=== PATIENT | female | born 1985 | race Caucasian/White ===

== ENCOUNTER 2022-03-25 00:32 | Emergency (ER) | payer BC ==
[~2022-03-25] VITALS: Ht 162.6 cm; Wt 74.8 kg
[2022-03-25 00:40] VITALS: BP_SYST 166
--- NOTE | 2022-03-25 00:40 | NUR ---
ER at bedside examining patient.
[2022-03-25] MEDS ORDERED: LISINOPRIL 10 MG TABLET (PRINIVIL) PO ONE (01:00)
[2022-03-25] MEDS: IPRATROPIUM/ALBUTEROL SULFATE 3 ML AMPUL.NEB (DUONEB) INH ONE (01:08)
[2022-03-25 01:25] LABS: MEAN CORPUSCULAR VOLUME 88 fL (79.0-98.0); MONOCYTES # (AUTO) 0.6 K/uL (0.0-1.0)
[2022-03-25 01:31] LABS: BASOPHILS % (AUTO) 0.4 % (0.0-2.0); EOSINOPHILS # (AUTO) 0.1 K/uL (0.0-0.4); EOSINOPHILS % (AUTO) 2.1 % (0.0-4.0); HEMATOCRIT 41.8 % (36-48); HEMOGLOBIN 14.1 g/dL (12.0-16.0); LYMPHOCYTES # (AUTO) 2.6 K/uL (1.0-5.5); LYMPHOCYTES % (AUTO) 48.6 % (20.5-51.5); MEAN CORPUSCULAR HEMOGLOBIN 30 pg (27-31); MEAN CORPUSCULAR HGB CONC 34 % (32-36); MONOCYTES % (AUTO) 10.9 % (1.7-9.3); PLATELET COUNT (AUTO) 148 K/uL (130-430); RED BLOOD CELL COUNT(AUTO) 4.72 MIL/uL (4.2-6.2); RED CELL DISTRIBUTION WIDTH 12.9 % (9.0-15.0); WHITE BLOOD COUNT (AUTO) 5.3 K/uL (4.8-10.8)
[2022-03-25 01:33] LABS: ANION GAP 6 (5-15); CALCIUM 9.3 mg/dL (8.4-11.0); CHLORIDE 103 mmol/L (98-107); CREATININE 1.23 mg/dL (0.55-1.30); GLUCOSE 109 mg/dL (70-99); POTASSIUM 3.8 mmol/L (3.5-5.1); SODIUM SERUM 139 mmol/L (136-145); UREA NITROGEN, BLOOD 19 mg/dL (8-21)
[2022-03-25 01:41] LABS: ALANINE AMINOTRANSFERASE 26 U/L (12-78); ALBUMIN 3.7 g/dL (3.4-4.8); ASPARTATE AMINOTRANSFERASE 23 U/L (10-37); TOTAL BILIRUBIN 0.2 mg/dL (0.0-1.0)
[2022-03-25 01:43] LABS: GFR AFRICAN AMERICAN 64 mL/min (>90)
--- NOTE | 2022-03-25 02:17 | NUR ---
Written consent signed for IV contrast administration. Pt reports she was tested for food allergies in 2017 and a very mild reaction to shellfish was reported. Pt states allergy marker was very low. MD Zarco was made aware and okay to continue with procedure. Will monitor for any reaction.
--- NOTE | 2022-03-25 02:20 | NUR ---
# 20 gauge angiocath placed to R AC. Use of asceptic technique. Opsite placed over site. Blood return noted. Blood for lab drawn from site. Flushed with 10 cc of normal saline. No evidence of infiltration noted. Patient tolerated well.
--- NOTE | 2022-03-25 02:38 | NUR ---
Pt taken to CT for imaging.
[2022-03-25] MEDS ORDERED: iohexoL 300 mgI/mL, 150 ML INFUS..BTL IV ONE (02:39)
[2022-03-25] MEDS ORDERED: ALBMDI INH (04:14)
[2022-03-25 04:18] VITALS: BP_SYST 120
--- NOTE | 2022-03-25 04:18 | NUR ---
Patient given written and verbal discharge instructions by Dr Zarco and verbalizes understanding. ER MD discussed with patient the results and treatment provided. Patient in stable condition. ID arm band removed. IV catheter removed by primary RN, intact and dressing applied, no active bleeding. Rx of albuterol sent to pharmacy of choice by Dr. Zarco. Patient educated on pain management and to follow up with PMD. Opportunity for questions provided and answered by Dr Zarco.
== END 2022-03-25 04:18 | disposition home or self-care (01) ==
LOC: SED 00:32
DX: R06.02 Shortness of breath (principal); J98.01 Acute bronchospasm; Z91.018 Allergy to other foods; Z79.899 Other long term (current) drug therapy
CPT/HCPCS: 36415; 71045; 71275; 76376; 80053; 84484; 84702; 85025; 85379; 93005; 94640; 99285; Q9967